=== PATIENT | female | born 1980 | race Asian ===

== ENCOUNTER 2016-08-31 21:13 | Inpatient (IN) | payer BC ==
[~2016-08-31] VITALS: Ht 167.6 cm; Wt 83.9 kg
[2016-08-31] MEDS ORDERED: LACTATED RINGERS 1,000 ML IV SCH (22:47)
[2016-08-31] MEDS ORDERED: PROMETHAZINE 25 MG/ML VIAL IVP PRN (22:50)
[2016-08-31] MEDS ORDERED: NALBUPHINE 10 MG/ML AMP IVP PRN (22:50)
[2016-08-31] MEDS ORDERED: METHYLERGONOVINE 0.2 MG/ML AMP IM SCH (22:50)
[2016-08-31] MEDS ORDERED: CARBOPROST 250 MCG/ML AMP IM PRN (22:50)
[2016-08-31] MEDS ORDERED: IBUPROFEN 800 MG TAB PO PRN (22:50)
[2016-08-31] MEDS ORDERED: OXYTOCIN 20 UNITS/LR PREMIX 1,000 ML IV SCH (23:30)
[2016-08-31] MEDS ORDERED: BUPIVACAINE 0.125%/NS PREMIX 250 ML ONE (23:38)
[2016-08-31 23:43] LABS: BASOPHILS # (AUTO) 0.1 K/uL (0.00-0.22); BASOPHILS % (AUTO) 0.7 % (0.0-2.0); EOSINOPHILS # (AUTO) 0.2 K/uL (0-0.4); EOSINOPHILS % (AUTO) 1.7 % (0.0-4.0); HEMOGLOBIN 11.1 g/dL (12.0-16.0); LYMPHOCYTES # (AUTO) 1.9 K/uL (2.5-16.5); LYMPHOCYTES % (AUTO) 20.7 % (20.5-51.1); MEAN CORPUSCULAR HEMOGLOBIN 28 pg (27-31); MEAN CORPUSCULAR HGB CONC 33 g/dL (33-37); MEAN CORPUSCULAR VOLUME 85 fL (80-94); MONOCYTES # (AUTO) 0.5 K/uL (0.8-1.0); MONOCYTES % (AUTO) 5.9 % (1.7-9.3); NEUTROPHILS # (AUTO) 6.6 K/uL (1.8-7.7); PLATELET COUNT (AUTO) 229 K/uL (140-450); RED BLOOD CELL COUNT(AUTO) 4.03 MIL/uL (4.20-5.40); RED CELL DISTRIBUTION WIDTH 13.2 % (11.6-13.7); WHITE BLOOD COUNT (AUTO) 9.3 K/uL (4.8-10.8)
[2016-08-31 23:50] LABS: ALBUMIN 2.7 g/dL (3.4-5.0); ANION GAP 14.8 (8-16); CALCIUM 8.8 mg/dL (8.5-10.1); CARBON DIOXIDE 22.9 mmol/L (21-32); CREATININE 0.8 mg/dL (0.6-1.3); POTASSIUM 3.7 mmol/L (3.5-5.1); TOTAL BILIRUBIN 0.2 mg/dL (0.0-1.0); TOTAL PROTEIN, SERUM 6.9 g/dL (6.4-8.2)
[2016-08-31 23:54] LABS: APPEARANCE,URINE SL CLOUDY (CLEAR); BILIRUBIN,URINE NEGATIVE (NEGATIVE); BLOOD, URINE NEGATIVE (NEGATIVE); COLOR,URINE YELLOW (YELLOW); LEUKOCYTE ESTERASE ,URINE TRACE (NEGATIVE); NITRITE, URINE NEGATIVE (NEGATIVE); PROTEIN,URINE NEGATIVE (NEGATIVE); UGLUCOSE 2+ (NEGATIVE); UROBILINOGEN,URINE 0.2 EU/dL (0.2 - 1)
[2016-09-01] MEDS ORDERED: AMPICILLIN 2,000 MG in NACL 0.9% 100 ML IV SCH ×2
[2016-09-01] MEDS ORDERED: AMPICILLIN 2,000 MG VIAL ONE (00:02)
[2016-09-01] MEDS ORDERED: OXYTOCIN 20 UNITS/LR PREMIX 1,000 ML IV ONE (01:51)
[2016-09-01] MEDS ORDERED: AMPICILLIN 1,000 MG in NACL 0.9% 50 ML IV SCH (04:00)
[2016-09-01] MEDS ORDERED: OXYTOCIN 10 UNITS/ML VIAL ONE (06:28)
[2016-09-01] MEDS ORDERED: OXYTOCIN 10 UNITS/ML VIAL IM ONE (07:00)
[2016-09-01 07:17] LABS: BACTERIA,URINE FEW /HPF (None Seen); CALCIUM OXALATE CRYSTALS,UR 0-3 /HPF (None Seen); RBC,URINE 0-3 /HPF (0-5); WBC,URINE 0-3 /HPF (0-5)
--- NOTE | 2016-09-01 07:49 | NUR ---
PATIENT HAS BEEN SCREENED AND CATEGORIZED LOW NUTRITION RISK. PATIENT WILL BE SEEN WITHIN 7 DAYS OF ADMISSION. 09/07/[address]
[2016-09-01 08:13] VITALS: BP 110/65
[2016-09-01] MEDS ORDERED: oxyCODONE/APAP 5/325 MG 1 TAB TAB ONE (08:54)
[2016-09-01] MEDS ORDERED: oxyCODONE/APAP 5/325 MG 1 TAB TAB PO PRN (12:45)
[2016-09-01] MEDS ORDERED: SODIUM PHOSPHATE 118 ML ENEM RC PRN (12:45)
[2016-09-01] MEDS ORDERED: WITCH HAZEL 40 PAD PACKAGE TP PRN (12:45)
[2016-09-01] MEDS ORDERED: MEASLES, MUMPS, AND RUBELLA 1 VIAL SQVAC PRN (12:45)
[2016-09-01] MEDS ORDERED: OXYTOCIN 10 UNITS/ML VIAL IM PRN (12:45)
[2016-09-01] MEDS ORDERED: BENZOCAINE/MENTHOL 20%-0.5% 60 GM CAN TP PRN (12:45)
[2016-09-01] MEDS ORDERED: METHYLERGONOVINE 0.2 MG/ML AMP IM PRN (12:45)
[2016-09-01] MEDS: HYDROcodone/APAP 5/325 MG 1 TAB TAB PO PRN ×3 (13:24→22:27)
[2016-09-01] MEDS ORDERED: DOCUSATE SOD/SENNA 50/8.6 MG 1 TAB PO SCH (21:00)
[2016-09-01] MEDS ORDERED: TEMAZEPAM 15 MG CAP PO PRN (21:00)
[2016-09-01] MEDS ORDERED: GLYCOPYRROLATE 0.2 MG/ML VIAL ONE (23:12)
[2016-09-02] MEDS: HYDROcodone/APAP 5/325 MG 1 TAB TAB PO PRN ×3 (04:18→21:04)
[2016-09-02 06:05] LABS: HEMATOCRIT 33.7 % (36-48); HEMOGLOBIN 10.9 g/dL (12.0-16.0)
[2016-09-02] MEDS ORDERED: PROPOFOL 200 MG/20 ML VIAL IV ONE (06:57)
[2016-09-02] MEDS ORDERED: BUPIVACAINE-MPF/EPI 0.5% 30 ML VIAL INJ ONE (07:11)
[2016-09-02] MEDS ORDERED: LIDOCAINE/EPI MPF 2%1:200000 10 ML VIAL INJ ONE (07:15)
[2016-09-02] MEDS ORDERED: SODIUM BICARBONATE 8.4% PFS 50 MEQ/50 ML SYR IVP ONE (07:16)
[2016-09-02] MEDS ORDERED: ONDANSETRON 4 MG/2 ML VIAL IVP PRN ×2 (07:40→10:00)
[2016-09-02] MEDS ORDERED: KETAMINE 500 MG/5 ML VIAL ONE (07:50)
[2016-09-02] MEDS: HYDROmorphone PFS 2 MG/ML SYR ONE ×4 (08:22→08:52)
[2016-09-02] MEDS ORDERED: HYDROmorphone 1 MG/ML AMP IVP PRN (08:25)
[2016-09-02] MEDS ORDERED: KETOROLAC 30 MG/ML VIAL IVP PRN (10:00)
[2016-09-03] MEDS: HYDROcodone/APAP 5/325 MG 1 TAB TAB PO PRN (03:09)
[2016-09-03] MEDS ORDERED: IBUP-2213 PO (11:06)
== END 2016-09-03 16:30 | disposition home or self-care (01) | DRG 767 ==
LOC: MFCC 21:13
PROVIDERS: ADMIT Obstetrics & Gynecology; ATTEND Obstetrics & Gynecology
PROC: 00HU33Z Insertion of Infusion Device into Spinal Canal, Percutaneous Approach (ICD-10-PCS; 2016-08-31)
PROC: 3E0R3CZ (ICD-10-PCS; 2016-08-31)
PROC: 10E0XZZ Delivery of Products of Conception, External Approach (ICD-10-PCS; principal; 2016-09-01)
PROC: 10907ZC Drainage of Amniotic Fluid, Therapeutic from Products of Conception, Via Natural or Artificial Opening (ICD-10-PCS; 2016-09-01)
PROC: 0UB70ZZ Excision of Bilateral Fallopian Tubes, Open Approach (ICD-10-PCS; 2016-09-02)
DX: O24.420 Gestational diabetes mellitus in childbirth, diet controlled (principal); Z30.2 Encounter for sterilization; Z3A.38 38 weeks gestation of pregnancy; Z37.0 Single live birth; Z28.21 Immunization not carried out because of patient refusal; Z83.3 Family history of diabetes mellitus; Z80.42 Family history of malignant neoplasm of prostate; Z80.8 Family history of malignant neoplasm of other organs or systems; Z82.49 Family history of ischemic heart disease and other diseases of the circulatory system
CPT/HCPCS: 36415; 51702; 80053; 81001; 85018; 85025; 86592; 86886; 86900; 86901; 87653-90; 93005; J0290; J1170; J2001; J2405; J2590; J2704; J3490; J7120